=== PATIENT | male | born 1975 | race Caucasian/White ===

== ENCOUNTER 2023-09-25 08:52 | Outpatient (CLI) | payer OTHER, SELFPAY ==
--- NOTE | ~2023-09-25 | XR_ITS ---
Lumbosacral Spine: AP, oblique, and lateral views Clinical History: Pain Findings: The normal lordotic curve is maintained. The vertebral bodies and posterior elements are i ntact. The intervertebral disc spaces are preserved. The sacroiliac joints are normally outlined. Impression: No significant abnormality. Reviewed, dictated and finalized at [facility]. [employer] Impression: No significant abnormality.
== END 2023-09-25 08:53 | disposition home or self-care (01) ==
PROVIDERS: PCP Family Medicine; Visit Provider Family Medicine
DX: M54.30 Sciatica, unspecified side (principal)
CPT/HCPCS: 72110

== ENCOUNTER → 2023-11-18 16:46 | Outpatient (REF) | payer OTHER, SELFPAY | LOC: ANHLAB 16:46 | PROVIDERS: PCP Family Medicine; Visit Provider Plastic Surgery | DX: R22.2 Localized swelling, mass and lump, trunk (principal) | CPT/HCPCS: 88304 ==

== ENCOUNTER 2023-12-12 02:50 | Day surgery (SDC) | payer OTHER, SELFPAY ==
[2023-11-28 09:49] VITALS: BMI 42.7
--- NOTE | 2023-12-12 08:07 | WPDANESEPPF ---
Anes - Initial Pre Proc Eval Procedure: Operation Date: 12/12/23 10:30 Proposed Procedures p Screening Colonoscopy - Javier Andrea MD Date/Time: 12/12/23 08:07 Surgeon: Javier Andrea MD Pre Op Diagnosis: Fam. Hx. mal.neoplasm of digestive organs Patient Data Age: 48 Gender: M Height: 1.78 m Weight: 135 kg Allergies Allergy/AdvReac Type Severity Reaction Status Date / Time No Known Allergies Allergy Verified 12/12/23 09:05 Home Medications Medication Instructions Recorded Confirmed Type celecoxib 200 mg capsule (Celebrex) 200 mg PO BID #60 caps 09/25/23 12/12/23 Rx fish [id number] C-vit E 2,000 2,000 g PO DAILY 11/28/23 12/12/23 History mg-650 mg-12 mg/2.5 g emulsion packt turmeric 400 mg capsule 400 mg PO DAILY 11/28/23 12/12/23 History Patient hx anesthesia problems: none Family hx anesthesia problems: none Results Review: All pre-operative results and documents have been reviewed as part of the pre-operative evaluation. [facility] Past Medical History Medical History (Updated 10/31/23 @ 17:21 by Francine Lopez MD) Mass of buttock Family History Family History Sibling Patient's brother is in good health Father Family history of liver disease, Onset Age: 55 Carcinoma of colon, Onset Age: 55 Mother Family history of hepatitis, Onset Age: 45 Diabetes mellitus Social History Social History (Updated 10/31/23 @ 16:56 by Francine Lopez MD) Social History: Smoking packs per day: 1 Smoking cigarettes per day: 20.0 Years smoked: 12 Smoking pack-years: 12.00 Smoking status: Former smoker (cigars) Tobacco type: cigarettes Second hand tobacco smoke exposure: No Smoking end date: 02/11/09 Alcohol intake: current Drinks per week: 12 Substance use: never Substance use type: does not use Do You Feel Safe in your Home?: Yes Lack of Transportation: No Lack of Food: Never True Current Housing: I Have Housing Concerned About Future Housing: No Difficulty Paying Gas/Electric Bills: Decline to Answer Difficulty Paying for Meds: Decline to Answer Currently Unemployed: Decline to Answer Education: Decline to Answer Difficulty w/ Childcare or Family Care: Decline to Answer Living arrangements: with family Occupation/Education: occupation 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 Gender identity (if verbalized by the patient): Male Sexual Orientation (if Verbalized by the Patient): Straight or Heterosexual Spiritual care concerns: No Anes - Eval Final PreProcedure Day of Procedure 12/12/23 08:07 Patient weight: morbidly obese Heart: regular rate and rhythm Lungs: clear to auscultation Airway: Mallampati scale class II Neurological: alert and oriented Last oral intake: >/= 8 hours ASA classification: III Emergent: no Anesthetic plan: proceed Anesthesia type and monitoring: general GIVS and standard monitoring Results Review: All pre-operative results and documents have been reviewed as part of the pre-operative evaluation. Informed Consent: The patient's anesthetic plan and its attendant risks and benefits were discussed with the patient/family/POA. Questions were solicited and answers provided to the satisfaction of the patient/family/POA.
[2023-12-12 09:07] VITALS: BP 145/100; PULSE 76; RESP 16; TEMP 36.3; O2SAT 97
[2023-12-12] MEDS: LACTATED RINGERS 1,000 ML 150 ML IV CONT (09:18)
--- NOTE | 2023-12-12 09:32 | PM.HPGS ---
History of Present Illness History of Present Illness Consent: Risks, benefits, and alternatives have been discussed and questions answered. Patient agrees to proceed with procedure. Chief complaint: Fam. Hx. mal.neoplasm of digestive organs Narrative: Serjio Keating Jr. is a 48 year old male here for first screening colonoscopy, father had colon cancer Review of Systems Review of Systems: All systems reviewed & are unremarkable except as noted in HPI and below PMFSH Past Medical History Medical History (Updated 10/31/23 @ 17:21 by Francine Lopez MD) Mass of buttock Family History Family History Sibling Patient's brother is in good health Father Family history of liver disease, Onset Age: 55 Carcinoma of colon, Onset Age: 55 Mother Family history of hepatitis, Onset Age: 45 Diabetes mellitus Social History Social History (Updated 10/31/23 @ 16:56 by Francine Lopez MD) Social History: Smoking packs per day: 1 Smoking cigarettes per day: 20.0 Years smoked: 12 Smoking pack-years: 12.00 Smoking status: Former smoker (cigars) Tobacco type: cigarettes Second hand tobacco smoke exposure: No Smoking end date: 02/11/09 Alcohol intake: current Drinks per week: 12 Substance use: never Substance use type: does not use Do You Feel Safe in your Home?: Yes Lack of Transportation: No Lack of Food: Never True Current Housing: I Have Housing Concerned About Future Housing: No Difficulty Paying Gas/Electric Bills: Decline to Answer Difficulty Paying for Meds: Decline to Answer Currently Unemployed: Decline to Answer Education: Decline to Answer Difficulty w/ Childcare or Family Care: Decline to Answer Living arrangements: with family Occupation/Education: occupation 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 Gender identity (if verbalized by the patient): Male Sexual Orientation (if Verbalized by the Patient): Straight or Heterosexual Spiritual care concerns: No Meds Home Medications and Allergies Home Medications Medication Instructions Recorded Confirmed Type celecoxib 200 mg capsule (Celebrex) 200 mg PO BID #60 caps 09/25/23 12/12/23 Rx fish khm--ury C-vit E 2,000 2,000 g PO DAILY 11/28/23 12/12/23 History mg-650 mg-12 mg/2.5 g emulsion packt turmeric 400 mg capsule 400 mg PO DAILY 11/28/23 12/12/23 History Allergies Allergy/AdvReac Type Severity Reaction Status Date / Time No Known Allergies Allergy Verified 12/12/23 09:05 Vital Signs Vital Signs - 24 hr 12/12/23 09:07 Temperature 97.3 F L Pulse Rate 76 Respiratory Rate 16 Blood Pressure 145/100 H Pulse Oximetry 97 Oxygen Delivery Room Air Exam Const: General: comfortable and no acute distress HENMT: Face/Nose/Sinus: Normal nares present Eyes: General: appearance normal, both eyes and all related structures Neck: Neck: no JVD Resp: Auscultation: clear to auscultation bilaterally Cardio: Rate: regular rate Rhythm: regular rhythm GI: Inspection: non-distended GI Palp: Yes Soft to palpation Skin: General skin exam: normal color Neuro: General: gait normal Speech: normal speech Extrem: General: normal to inspection Psych: Mental Status: mental status grossly normal Assessment and Plan Assessment and plan (1) FHx: colon cancer: Code(s): Z80.0 - Family history of malignant neoplasm of digestive organs Status: Acute Assessment and Plan: colonoscopy
[2023-12-12 09:52] VITALS: BP 109/73; PULSE 81; RESP 23; O2SAT 94
[2023-12-12 10:02] VITALS: BP 114/77; PULSE 70; RESP 22; O2SAT 95
[2023-12-12 10:12] VITALS: BP 113/67; PULSE 67; RESP 20; O2SAT 96
== END 2023-12-12 10:17 | disposition home or self-care (01) ==
PROVIDERS: PCP Family Medicine; Visit Provider Internal Medicine Gastroenterology
PROC: 0DJD8ZZ Inspection of Lower Intestinal Tract, Via Natural or Artificial Opening Endoscopic (ICD-10-PCS; CPT 45378; principal; 2023-12-12 10:30)
DX: Z12.11 Encounter for screening for malignant neoplasm of colon (principal); K63.5 Polyp of colon; K64.8 Other hemorrhoids; E66.01 Morbid (severe) obesity due to excess calories; Z68.41 Body mass index [BMI] 40.0-44.9, adult; Z79.1 Long term (current) use of non-steroidal anti-inflammatories (NSAID); Z87.891 Personal history of nicotine dependence; Z87.2 Personal history of diseases of the skin and subcutaneous tissue; Z80.0 Family history of malignant neoplasm of digestive organs
CPT/HCPCS: 45385; 88305; J2704; J7120